=== PATIENT | female | born 1955 | race Caucasian/White ===

== ENCOUNTER → 2017-11-20 10:54 | Outpatient (CLI) | payer OTHER, SELFPAY | DX: Z12.31 Encounter for screening mammogram for malignant neoplasm of breast (principal) | CPT/HCPCS: 77063; 77067 ==

== ENCOUNTER 2021-08-01 17:02 | Observation (INO) | payer MEDICAID, SELFPAY ==
--- NOTE | 2021-07-24 16:26 | HP.PCM_ITS ---
History and Physical Date of Admission: 08/01/21 HPI: The patient is a 65 year old female presenting for pre-operative visit. She is scheduled for TVH, bilateral salpingectomy and oophorectomy, USLF, A&P repair and cystoscopy, for complete symptomatic uterovaginal prolapse on 08/01/21. Procedure discussed along with risks, benefits and complications. Other alternatives discussed for management. Consent form signed? Yes. ? ? PAST MEDICAL HISTORY PAST MEDICAL HISTORY Diagnosis Date ? Allergic rhinitis ? ? seasonal; Dr. Al had given nasal steroid and had helped ? Migraine headache without aura ? ? ? PAST SURGICAL HISTORY PAST SURGICAL HISTORY Procedure Laterality Date ? LIG/TRNSXJ FLP TUBE ABDL/VAG APPR UNI/BI ? 02/28/1995 ? PAST SURGICAL HISTORY OF ? 05/10/1987 ? diagnositc laparoscopy and tubal insufflation ? REM LESIO TRUNK,ARM,LEG 1.1 -2.0CM ? 02/01/14 ? Exc. right flank skin lesion (SK) ? UNSPECIFIED ORAL SURGERY PROCEDURE, BY REPORT ? ? ? tooth cut out. ? ? ? CURRENT MEDICATIONS Current Outpatient Medications Medication Sig Dispense Refill ? sumatriptan succinate (IMITREX ORAL) Take by mouth. ? ? ? estradiol (ESTRACE) 0.01 % (0.1 mg/gram) vaginal cream apply approx. 1/2 inch of cream to lower vagina qhs three times a week 42.5 g 0 ? meloxicam (MOBIC) 15 mg tablet Take 1 tablet by mouth once daily as n eeded. for pain. Take with food. 30 tablet 1 ? oxybutynin XL (DITROPAN XL) 5 mg 24 hr tablet Take 1 tablet by mouth twice daily. 180 tablet 3 ? pyridoxine HCl, vitamin B6, (VITAMIN B-6 ORAL) Take 1 tablet by mouth once daily. ? ? ? VITAMIN B COMPLEX-100 ORAL Take 1 tablet by mouth once daily. ? ? ? cholecalciferol, vitamin D3, (VITAMIN D3 ORAL) Take 5,000 Units by mouth once daily. ? ? ? Oxyquinoline-Na Lauryl Sulfate (TRIMO-CLAYTON JELLY) 0.025-0.01 % gel Use 1 application vaginally as directed. (Patient not taking: Reported on 12/19/2020 ) 1 Tube 2 ? triamcinolone acetonide (KENALOG) 0.1 % cream Apply 1 application to affected area three times daily. Apply sparingly to area for rash/itching. (Patient not taking: Reported on 05/23/2019 ) 30 g 0 ? loratadine-pseudoephedrine ER (ALAVERT ALLERGY-SINUS) 5-120 mg per tablet Take 1 tablet by mouth twice daily as needed. (has refills to September since last RX from September 2014) (Patient not taking: Reported on 11/15/2019 ) ? ? ? No current facility-administered medications for this visit. ? ? ALLERGIES: Adhesive Tape (Rosins), All Adhesive Of Any Kind [Other], Hayfever [Homeopathic Products], and Vicodin [Hydrocodone-Acetaminophen] ? PERSONAL HISTORY: SOCIAL HISTORY Social History ? Tobacco Use ? Smoking status: Never Smoker ? Smokeless tobacco: Never Used Vaping Use ? Vaping Use: Never used Substance Use Topics ? Alcohol use: No ? Drug use: No ? FAMILY HISTORY: FAMILY HISTORY FAMILY HISTORY Problem Relation Age of Onset ? Hypertension Mother ? ? Cervical Cancer Mother ? ? other (Lung cancer) Mother ? ? Cancer Father ? ? Hodgkins ? other (Parkinsons) Maternal Aunt ? ? Alzheimer's Disease Maternal Aunt ? ? Cancer Maternal Grandfather ? ? Brain; other cancers in body ? ? REVIEW OF SYMPTOMS: GENERAL: denies fevers or chills ENDOCRINOLOGY: has not been on steroids Cardiology : denies palpitations or chest pain Respiratory: denies SOB or cough Hematology: denies history of prolonged bleeding or easy bruising or VTE Allergy: Denies history of personal or family history of allergy to anesthesia ? PHYSICAL EXAMINATION: ? VITALS: Height 5' 1 (1.549 m), weight 131 lb (59.4 kg). ? GENERAL: The patient is well nourished, well hydrated in no acute distress. , The patient is oriented to time, place, and person. NECK: Supple. No lynphadenopathy, normal thyroid, no thyromegaly. LUNGS: Clear to auscultation bilaterally. no wheezes, rhonchi or rales HEART: Regular rate and rhythm, Normal heart sounds and No murmurs or gallops ? IMPRESSION: Complete uterovaginal prolapse, symptomatic ? PLAN: The risks/benefits/alternatives and personal involved for the planned TVH, BSO, USLF, A&P repair and cystoscopy were reviewed with the patient. Her questions were answered to her satisfaction and she desires to proceed. Consent was signed. I reviewed with her postop instructions and expectations. ? ? I have reviewed and updated past medical and surgical history, medications and allergies Assessment & Plan Assessment/Plan (1) Cystocele: (2) Rectocele: (3) Complete uterovaginal prolapse:
--- NOTE | 2021-07-31 15:32 | EKG12_ITS ---
Test Reason : PREOP Blood Pressure : / mmHG Vent. Rate : 047 BPM Atrial Rate : 047 BPM P-R Int : 152 ms QRS Dur : 086 ms QT Int : 428 ms P-R-T Axes : 047 -13 017 degrees QTc Int : 378 ms Sinus bradycardia Voltage criteria for left ventricular hypertrophy Abnormal ECG Confirmed by JJ DOAN, SIVAKUMAR ([id number]), editorial specialist JONI MOSHER ([id number]) on 08/01/2021 12:50:35 PM Referred By: LUMA Confirmed By:SIVAKUMAR GARDNER MD
[2021-07-31 16:33] LABS: Magnesium 2.4 mg/dL (1.6-2.6)
[2021-08-01] VITALS (12 sets, daily range): BP systolic 95–135; BP diastolic 58–79; PULSE 47–61; RESP 12–18; TEMP 36.3–36.9; O2SAT 92–100; BMI 24.2
--- NOTE | 2021-08-01 | IMM_PTH ---
PATIENT: LEVY DAILY LOC: MS3 U#:[id number] AGE/SX: 65/F ROOM: CO311 RE08/01/[address]: Dr. Stacia Wheatley MD : 1955 BED: 1 DIS: 08/03/2021 SPEC #: [id number] RECD: 08/05/21 13:51 STATUS: MACARIO REQ #: [id number] RADHA: 08/01/21 00:[address]: Stacia Wheatley DEPT: IMMUNOHISTOCHEMISTRY RECD BY: Ele Aj ENTERED: 08/05/21 13:54 SP TYPE: IMMUNO OTHR DR: Dr. Reshma Suarez MD [facility] Tissues: Uterus, NOS Procedures: p16 (initial) KI-67 (add) PHYSICIAN & INSTITUTION [place] [id number] SPECIMEN INFORMATION: Tissue Source: Uterus Clinical Info: Cystocele, rectocele, complete uterovaginal prolapse Specimen Number: [id number] #1 CPT code: 32857, 22158 METHODOLOGY: Deparaffinized sections of prefer/formalin-fixed tissue or PAP/DQ stained slides are incubated with monoclonal/polyclonal antibodies/oligonucleotide probes. Localization is made via biotin free immunoperoxidase method. Appropriate controls are performed and reacted as expected. Results on target cell population are indicated in the following table: RESULTS: ANTIBODY / CLONE RESULT Block 1 P16 (E6H4) positive Ki-67 (30-9) negative, rare, patchy These tests were developed and their performance characteristics determined by [facility]. They may not have been cleared or approved by the U.S. Food and Drug Administration. The FDA has determined that such clearance or approval is not necessary. The above immunohistochemical/dualISH markers are ordered and reviewed by the Pathologist. INTERPRETATION: Uterus, hysterectomy: Cervix with focal HPV change. AM:jayda 08/06/2021
[2021-08-01] MEDS: Lactated Ringers 1,000 ML 40 ML IV (08:38)
[2021-08-01] MEDS: Scopolamine 1mg/72hr Patch 1 PATCH TD (08:42)
[2021-08-01] MEDS: Gabapentin 600 MG Tablet PO (08:43)
[2021-08-01] MEDS: Phenazopyridine 95 MG Tablet 190 MG PO (08:43)
[2021-08-01] MEDS: Enoxaparin 40 MG/0.4 ML Syringe SC (08:46)
[2021-08-01] MEDS: Acetaminophen 500 MG Tablet 1000 MG PO ×3 (08:51→22:56)
[2021-08-01] MEDS: Celecoxib 200 MG Capsule PO (09:07)
--- NOTE | 2021-08-01 10:20 | HYST_PTH ---
PATIENT: LEVY DAILY LOC: MS3 U#:[id number] AGE/SX: 65/F ROOM: ND311 RE08/01/[address]: Dr. Stacia Wheatley MD : 1955 BED: 1 DIS: 08/03/2021 SPEC #: [id number] RECD: 08/01/21 14:12 STATUS: MACARIO RECandice #: [id number] RADHA: 08/01/21 10:[address]: Stacia Wheatley DEPT: SURGICAL PATHOLOGY RECD BY: Darinel Grey ENTERED: 08/02/21 07:54 SP TYPE: HYSTERECT OTHR DR: Dr. Reshma Suarez MD [facility] Tissues: Uterus, NOS Procedures: Surgery Specimen Level V HEADER OPERATION: ERAS, vaginal hysterectomy, bilateral salpingectomy PRE-OP DIAGNOSIS: Cystocele, rectocele, complete uterovaginal prolapse TISSUE SUBMITTED: Uterus, bilateral fallopian tubes, vaginal mucosa MICROSCOPIC DIAGNOSIS Uterus, hysterectomy: Cervix ? Focal HPV change suspected. Squamous metaplasia and chronic inflammation. See comment. Endometrium ? inactive endometrium with focal cystic change. Benign endometrial polyp with simple cystic hyperplasia. Myometrium ? no pathologic change. Right and left fallopian tubes ? benign paratubal cysts. Vaginal mucosa, anterior and posterior repair: Mild chronic inflammation. AM:jayda 08/05/2021 COMMENT Results from immunohistochemistry ([id number]) for surrogate HPV marker (p16) will be reported separately. MICROSCOPIC DESCRIPTION Slides are reviewed. GROSS DESCRIPTION Received in fixative is one container labeled with the patient's name and designated uterus, bilateral fallopian tubes and vaginal mucosa. The specimen consists of a hysterectomy specimen consisting of uterus with cervix, detached portion of bilateral fallopian tubes and vaginal mucosal tissue. The uterus with cervix weighs 33 gm and measures 7.5 x 4.5 x 2 cm. The serosal surface is cohen, glistening. The ectocervical mucosa is unremarkable. The external os is oval in contour. The endocervical canal measures 3 cm in length and the endocervical mucosa is cohen, glistening and unremarkable. The triangular endometrial cavity measures 3 cm in length and 2 cm in width. An endometrial polyp is noted in the posterior uterine wall measuring 1 x 0.7 x 0.2 cm. The rest of the endometrium is cohen, glistening and measures <0.1 cm in thickness. Portion of bilateral fallopian tubes measure 2 cm in length and 0.5 cm in diameter and 1.5 cm in length and 0.5 cm in diameter. The fimbrial ends are identified. Sections reveal unremarkable cut surfaces. Also present in the container are three variable sized pieces of cohen mucosal tissue measuring in aggregate 4 x 3 x 0.2 cm. Sections reveal unremarkable cut surfaces. A few instrumentation spicer are noted. Apprentice Technician sections are submitted in ten cassettes as follows: 1??anterior cervix, 2 - posterior cervix, 3 & 4 - anterior uterine wall, 5 & 6 - posterior uterine wall, 7??endometrial polyp with underlying uterine wall, 8 - one fallopian tube, 9 - second fallopian tube, 10??mucosal tissue. / HALEY:jayda 08/02/2021 TC:3 CPT: 71533
[2021-08-01 10:30] LABS: Bedside Glucose 90 mg/dL (74-106)
[2021-08-01] MEDS: Cefazolin 2 GM in 0.9% Normal Saline 100 ML IV (11:12)
[2021-08-01] MEDS: dexAMETHasone 10 MG/ML Vial 8 MG IV (11:25)
[2021-08-01] MEDS: Lactated Ringers @ 70 MLS/HR 70 ML IV ×2 (12:30→20:08)
[2021-08-01] MEDS: Lidocaine 1% /Epi 1:100 (20ml) 20 ML Vial (12:50)
--- NOTE | 2021-08-01 13:12 | PCM.OPRPT ---
Problems Associated Problem List Diagnoses (1) Rectocele: (2) Complete uterovaginal prolapse: Report of Operation Date of Procedure: 08/01/21 Pre-Operative Diagnosis: complete uterovaginal prolapse, rectocele, cystocele Post-Operative Diagnosis: same Surgery/Procedure Performed:: TVH, bilateral salpingectomy, USLF, Posterior repair and cystoscopy Description of Surgical Findings:: atrophic ovaries, normal tubes, normal small uterus, normal vagina. small cystocele, cervix prolapses to introitus, low rectocele to introitus Surgeon: Stacia Wheatley boat camp operator: Linda Tam boat camp operator: Bettie Type of Anesthesia: General Anesthesiologist: Brandy Harris Special Medications: none Specimen's removed: uterus, cervix, bilateral fallopian tubes and vaginal epithelium Drains: grider Estimated Blood Loss (mL): 100 Fluids Replaced: 1300 Description of Procedure: The patient was taken to the operating room where she was prepped and draped in the normal sterile fashion in the dorsal lithotomy position. A weighted speculum was placed in the vagina and the anterior lip of the cervix was grasped with a Hector clamp. The vaginal epithelium was infiltrated circumferentially around the cervix with 1% Xylocaine solution. An incision was made around the entire cervix with a scalpel and the vaginal epithelium was dissected back with blunt and sharp dissection. The anterior colpotomy incision was made sharply. Entry into the anterior cul-de-sac was confirmed by visualization of the uterine fundus and bowel behind the uterus. The posterior colpotomy was made with the Cheung scissors. The posterior peritoneum was secured to the posterior vaginal cuff with an [id number] 0 Vicryl suture. The Joel retractor was placed in the posterior colpotomy incision. The uterosacral ligaments were clamped with Darren clamps transected and suture ligated on both sides and excellent hemostasis of the pedicles was noted. The cardinal ligaments were clamped transected and suture ligated. The remainder of the cardinal ligament with the uterine arteries was clamped transected and suture ligated. The utero-ovarian ligaments and tubes were clamped transected and suture ligated. The uterus was brought out through the colpotomy incision intact. The ovaries were not removed because they are very atrophic and up against the pelvic sidewall and it was deemed there would be an increased risk of bleeding or ureteral injury to remove them. The left ovary and tube appeared normal. A Mary clamp was placed across the left tube and it was transected with the Metzenbaum scissors and suture ligated. The same procedure was performed on the contralateral side. The pedicles were all examined again and found to be hemostatic. The uterosacral ligament fixation was then performed. A 2-0 PDS was used to go through the anterior vaginal epithelium, through the uterosacral ligament and back out through the fat posterior vaginal epithelium. A Prolene suture was then placed under the anterior vaginal epithelium through the uterosacral ligament and through the posterior vaginal cuff but not all the way through the epithelium so that the suture could be buried. Another 2-0 PDS was then placed more midline through the anterior vaginal epithelium through and through, then through the uterosacral ligament then through the posterior vaginal cuff. Same procedures performed on the contralateral side. An 0 Vicryl suture was reefed across the posterior peritoneum and cinched down to help close off the posterior cul-de-sac. The cystoscopy was then performed and both ureteral jets were noted with and without tension on the uterosacral ligament fixation sutures. The cystoscopy was finished and the Grider catheter replaced. The uterosacral ligament fixation was sutures were tied down and a uwgtcj-[id number] 0 Vicryl suture was placed over the permanent sutures and another 0 Vicryl egsyfv-ds-rigka was needed in the midline to finish closing the vaginal epithelium. Good support was noted. There is only about 4 to 5 cm of vaginal epithelium between the urethra and the vaginal cuff along the anterior vaginal wall. Decision was made not to proceed with anterior repair as this would very much shorten and close off the vaginal caliber and patient did desire to be able to be sexually active in the future. Posterior repair was then performed in the usual fashion. Some 1% Xylocaine with dilute epinephrine was injected and the vaginal epithelium was dissected off the vaginal underlying vaginal tissue and the underlying vaginal tissue was imbricated. Excess vaginal epithelium was removed. Perineal body was filled up with 0 Vicryl sutures. The vaginal epithelium and the skin were then closed with 3-0 Vicryl suture in a running standard fashion. Hemostasis was noted. A finger was placed in the rectum to ensure that the rectum was patent and there were no sutures penetrating through the rectal epithelium. The vaginal cuff was hemostatic and excellent support was noted. The vagina was then packed with Xeroform gauze after vaginal sweep was performed by me. The Grider was left to straight drain. All sponge lap and needle counts were correct. Patient was awakened and taken to theher recovery room in stable condition. Grafts/Implants Used: none Procedure Start Time: 11:37 Procedure Stop Time: 13:11 Complications none Admit VTE Documentation VTE Present on Admission: No VTE Mechan Device Prophylaxis: SCD's VTE Pharm Prophylaxis ordered?: Yes
[2021-08-01] MEDS: Docusate Sodium 100 MG Capsule PO (22:56)
[2021-08-02] MEDS: oxyCODONE 5 MG Tablet PO (03:33)
[2021-08-02 05:20] LABS: Hematocrit 34.1 % (37-47); Hemoglobin 10.7 g/dL (12.0-15.0); Mean Corp Hgb Conc 31.4 g/dL (32-36); Mean Corpuscular Hgb 28.8 pg (27.0-32.0); Mean Corpuscular Volume 91.7 fL (81-99); Platelet Count 279 K/mm3 (150-450); RBC Distribution Width CV 12.9 % (11.6-14.6); RBC Distribution Width SD 43.2 fl (35.1-43.9); Red Blood Count 3.72 M/mm3 (4.2-5.4); White Blood Count 13.2 K/mm3 (4.4-11.0)
[2021-08-02] MEDS: Acetaminophen 500 MG Tablet 1000 MG PO ×3 (06:17→19:34)
--- NOTE | 2021-08-02 08:57 | PCM.PN.OB ---
Subjective Subjective Pt doing well. Pain is well controlled. Bustillo and vaginal packing still in place. No vaginal bleeding around packing. She denies chest pain, shortness of breath, leg pain. She has tolerated clears without nausea or vomiting. Has not ambulated since surgery. Objective Data Objective Data Vital Signs: Vital Signs Temp Pulse Resp BP Pulse Ox 98.1 F 60 16 113/60 97 08/01/21 23:00 08/01/21 23:00 08/01/21 23:00 08/01/21 23:00 08/01/21 23:00 Oxygen Flow Rate (L/min) 4 Oxygen Delivery Method Room Air Weight: 132 lb 9.6 oz Body Mass Index (BMI) 24.2 Intake & Output: Intake and Output for Last 24 Hours 07/31/21 08/01/21 08/02/21 23:59 23:59 23:59 Intake Total 1792.83 / 1792.83 Output Total 525 / 925 600 / 600 Balance 1267.83 / 867.83 -600 / -600 Lab / Micro Data Result Diagrams: 08/02/21 04:52 Labs: Laboratory Results - last 24 hr 08/01/21 08:22: POC Glucose 90 08/02/21 04:52: WBC 13.2 H, RBC 3.72 L, Hgb 10.7 L, Hct 34.1 L, MCV 91.7, MCH 28.8, MCHC 31.4 L, RDW Std Deviation 43.2, RDW Coeff of Carola 12.9, Plt Count 279, MPV 10.0 Physical Exam Const alert and no apparent distress General Appearance: comfortable HEENT normocephalic Resp normal respiratory effort GI soft to palpation, non-tender and non-distended Extremity no calf tenderness Assessment & Plan (1) S/P vaginal hysterectomy: PLAN: Patient is postop day 1 from a total vaginal hysterectomy, bilateral salpingectomy, sacrospinous ligament fixation, posterior repair. She is doing well. Vital signs and CBC from today reviewed. Vaginal packing removed at bedside during rounds. Discussed with nurse to remove Bustillo and perform PVR. Encourage ambulation today. Anticipate discharge later today. Discharge instructions reviewed with patient. To follow-up in the office in 1 to 2 weeks.
[2021-08-02 09:35] VITALS: BP 99/55; PULSE 73; RESP 16; TEMP 36.7; O2SAT 98
--- NOTE | 2021-08-02 12:32 | DCINST_ITS ---
Discharge Instructions Diet Discharge Diet: No restrictions Activity Discharge Activity: May Not Drive (until you feel like your abdomen is strong enough to slam on a car brake or turn a steering wheel sharply) and May Shower May resume sexual activity in: 6 weeks (No intercourse, tampons, bath, hot tubs, or pool for 6 weeks) Ice area for (Minutes): 15 Weight Bearing Status: Weight bearing as tolerated Lifting Restrictions: Nothing greater than 5-10 lbs Dressing / Incision Call your doctor if you observe: Fever of 101 or Higher, Coldness, Increased Pain, Numbness or Tingling, Change in Color, Inability to urinate, Inability to have a bowel movement, Using more than 1 pad per hour, Shortness of breath, Dizziness, Fainting spells, Swelling in the ankles, Chest pain, Increased palpitations (irregular heartbeat), Calf discomfort and Uncontrolled pain Follow Up Care Please Follow Up With: Stacia Wheatley MD When: Keep scheduled follow up Test Results: Test results from this visit will be discussed in further detail at your follow-up appointment, if applicable. Discharge Plan Admission Admit Date/Time: 08/01/21 17:02 Primary Reason for Your Visit: surgery Attending Provider: Stacia Wheatley Primary Care Provider: Reshma Suarez Consulting [facility] Instructions Patient Instructions: Hysterectomy Vaginal Dc Discharge Orders/Prescriptions Prescriptions: Continued sumatriptan succinate [Imitrex] 100 mg Tablet 100 mg PO Q2H PRN (Reason: migraines) RF: 0 Discontinued oxybutynin chloride 5 mg tablet extended release 24hr 5 mg PO DAILY RF: 0 Other Ambulatory Orders: 12 Lead EKG (Routine) Location: None Selected Ordered By: Dr. Chuck Mcmanus Referrals / Follow Up: Reshma Suarez MD [Primary Care Provider] - Disposition Disposition (needs filled in before D/C Order can be placed): Home, Self Care
[2021-08-02] MEDS: Docusate Sodium 100 MG Capsule PO (15:18)
[2021-08-02] MEDS: Ondansetron ODT 4 MG Tablet PO (15:22)
[2021-08-02 15:25] VITALS: BP 117/71; PULSE 52; RESP 16; TEMP 36.7; O2SAT 95
[2021-08-02 15:56] VITALS: O2SAT 97
[2021-08-02 20:16] VITALS: BP 114/61; PULSE 55; RESP 16; TEMP 37.1; O2SAT 93
[2021-08-03] MEDS: Docusate Sodium 100 MG Capsule PO ×2 (00:22→13:13)
[2021-08-03] MEDS: Acetaminophen 500 MG Tablet 1000 MG PO ×2 (00:22→05:19)
[2021-08-03 05:26] VITALS: BP 105/65; PULSE 50; RESP 16; TEMP 37.2; O2SAT 98
--- NOTE | 2021-08-03 07:41 | PCM.PN.OB ---
Subjective Subjective Pt is doing well. Ambulating and voiding without difficulty. She feels she is now completely emptying her bladder. Per nursing staff voided a large amount overnight and this morning. Nausea has improved. She just ordered breakfast. She feels ready to go home today if tolerates breakfast. Objective Data Objective Data Vital Signs: Vital Signs Temp Pulse Resp BP Pulse Ox 99 F 50 L 16 105/65 98 08/03/21 05:26 08/03/21 05:26 08/03/21 05:26 08/03/21 05:26 08/03/21 05:26 Oxygen Flow Rate (L/min) 4 Oxygen Delivery Method Room Air Weight: 132 lb 9.6 oz Body Mass Index (BMI) 24.2 Intake & Output: Intake and Output for Last 24 Hours 08/01/21 08/02/21 08/03/21 23:59 23:59 23:59 Intake Total 1792.83 / 1792.83 1300 / 1300 400 / 400 Output Total 525 / 925 1075 / 1075 1000 / 1000 Balance 1267.83 / 867.83 225 / 225 -600 / -600 Lab / Micro Data Result Diagrams: 08/02/21 04:52 Physical Exam Const alert General Appearance: comfortable HEENT normocephalic Resp normal respiratory effort GI soft to palpation and non-distended Extremity normal to inspection Assessment & Plan (1) S/P vaginal hysterectomy: PLAN: POD#2 s/p TVH, BS, posterior repair, sacrospinous ligament fixation, cystoscopy. Voiding without difficulty. Nausea has improved. Meeting milestones for discharge. Discharge home today if tolerates breakfast. She does not want anything for pain at this time. We will send her home with a stool softener.
[2021-08-03 08:19] VITALS: O2SAT 95
[2021-08-03 09:30] VITALS: BP 124/69; PULSE 53; RESP 18; TEMP 36.9; O2SAT 98
[2021-08-03] MEDS: Ondansetron ODT 4 MG Tablet PO (09:30)
[2021-08-03] MEDS: proMETHazine 25 MG Tablet 12.5 MG PO (11:41)
[2021-08-03 13:04] VITALS: BP 124/69; PULSE 54; RESP 18; TEMP 36.8; O2SAT 96
== END 2021-08-03 15:31 | disposition home or self-care (01) ==
LOC: MS3 08-02 10:36 → SDC 08-02 11:05 → MS3 08-02 11:05
PROVIDERS: Anesthesiology; Obstetrics & Gynecology; Admitting Provider Obstetrics & Gynecology; PCP Internal Medicine; Visit Provider Obstetrics & Gynecology
PROC: (CPT 58260; principal; 2021-08-01 10:00)
DX: N81.3 Complete uterovaginal prolapse (principal); G43.909 Migraine, unspecified, not intractable, without status migrainosus; Z79.899 Other long term (current) drug therapy; N85.01 Benign endometrial hyperplasia; M19.90 Unspecified osteoarthritis, unspecified site
CPT/HCPCS: 58262; 00944; 57260; 36415; 82962; 83735; 85027; 86850; 86900; 86901; 88307; 88341; 88342; 93005; 99218; 99251; J7120; G0378; G0463; J2405

== ENCOUNTER → 2023-10-01 | Outpatient (CLI) | payer MEDICARE, OTHER, SELFPAY ==
--- NOTE | 2023-10-01 17:17 | RAD_ITS ---
STUDY: X-RAY - LEFT FOOT CLINICAL: Female, 67 years old. Pain in left ankle and joints of left foot. TECHNIQUE: 3 views of the left foot. COMPARISON: None. FINDINGS: Intact talus, calcaneus, and tarsal bones. There is a small plantar calcaneal spur. Normal visualized subtalar, talonavicular, calcaneocuboid, tarsal and tarsometatarsal articulations. Normal metatarsi. There is severe degenerative arthrosis of the metatarsophalangeal joint of the hallux. Normal tibial and fibular sesamoid bones. Normal interphalangeal joint of the great toe. Normal phalanges of the great toe. Normal second through fifth metatarsophalangeal joints. Normal interphalangeal joints and phalanges of the lesser toes. The soft tissue structures are unremarkable. There is no demonstrated fracture. 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 Small plantar calcaneal spur. Electronically Signed: Reji Jama MD at 12:11 EDT ,
== END | disposition home or self-care (01) ==
PROVIDERS: PCP Nurse Practitioner Family; Visit Provider Nurse Practitioner Family
DX: Z13.21 Encounter for screening for nutritional disorder (principal); M25.572 Pain in left ankle and joints of left foot; M15.0 Primary generalized (osteo)arthritis; E55.9 Vitamin D deficiency, unspecified
CPT/HCPCS: 36415; 73630; 80048; 82306

== ENCOUNTER → 2023-10-01 | Outpatient (CLI) | payer MEDICARE, OTHER, SELFPAY ==
[2023-10-01 17:31] LABS: Vitamin D,25 Hydroxy 66.6 ng/mL
[2023-10-01 17:39] LABS: Anion Gap 8 (5-15); BUN 13 mg/dL (7-18); BUN/Creat Ratio 18.7 RATIO (10-20); Calcium,Total 8.9 mg/dL (8.5-10.1); Chloride 105 mmol/L (98-107); Creatinine, Serum 0.69 mg/dL (0.55-1.02); EST Glomerular Filtration Rate 90 mL/min (>60); Est Glom Filt Rate - Afr Amer 108 mL/min (>60); Glucose 83 mg/dL (74-106); Potassium 3.7 mmol/L (3.5-5.1); Sodium Level 138 mmol/L (136-145)
== END | disposition home or self-care (01) ==
LOC: VSLAB 13:57
PROVIDERS: PCP Nurse Practitioner Family; Visit Provider Nurse Practitioner Family
DX: E55.9 Vitamin D deficiency, unspecified (principal); M15.0 Primary generalized (osteo)arthritis
CPT/HCPCS: 36415; 80048; 82306

== ENCOUNTER → 2023-10-13 | Outpatient (CLI) | payer MEDICARE, OTHER, SELFPAY ==
--- NOTE | 2023-10-13 11:56 | BI_ITS ---
MAMMOGRAPHY - BILATERAL SCREENING REASON FOR EXAM: Female, 67 years old. Routine annual screening examination. PERTINENT HISTORY: Non-contributory. TECHNIQUE: Digital bilateral breast luma (3D mammographic acquisition) in the CC and MLO projections. 2-D mediolateral oblique (MLO) and craniocaudad (CC) views of both breasts were obtained. CAD: Full Field Digital Mammography with Computer Added Detection was performed. COMPARISON: Comparison is made with prior study of November 20, 2017. FINDINGS: Breast Composition: The breasts are heterogeneously dense, which may obscure small masses. There are no dominant masses or suspicious calcifications. Stable small benign-appearing bilateral axillary lymph nodes. No other significant abnormalities are identified. There has been no significant change since the prior study. BI/SCRN MAMM (CAD)W/LUMA BILAT IMPRESSION: Stable bilateral screening mammogram. Yearly follow-up mammogram recommended. (A) ASSESSMENT CATEGORY: BIRADS Category 2: Benign. A letter regarding these results will be sent to the patient by the facility within 30 days. Approximately 10% of breast cancers are not detected by mammography. A normal mammogram should not delay biopsy of a clinically suspicious abnormality. [id number] Electronically Signed: Brian Ortega MD at 13:15 EDT ,
== END | disposition home or self-care (01) ==
LOC: OPBI 11:54
PROVIDERS: PCP Nurse Practitioner Family; Referring Provider Nurse Practitioner Family; Visit Provider Nurse Practitioner Family
DX: Z12.31 Encounter for screening mammogram for malignant neoplasm of breast (principal)
CPT/HCPCS: 77063; 77067

== ENCOUNTER → 2023-10-21 | Outpatient (CLI) | payer MEDICARE, OTHER, SELFPAY ==
--- NOTE | 2023-10-21 13:51 | BD_ITS ---
STUDY: DUAL ENERGY X-RAY ABSORPTIOMETRY / DXA REASON FOR EXAM: Female, 68 years old. M810 TECHNIQUE: Bone Mineral Density (BMD) measurements of lumbar spine and bilateral hips were obtained. COMPARISON: None. FINDINGS: Lumbar Spine (L1-L4): g/cm2 (0.678) / T-score (-3.5) / Z-score (-1.5) Findings are suggestive of osteoporosis with a high fracture risk. Left Femur Total: g/cm2 (0.627) / T-score (-2.6) / Z-score (-1.2) Left Femoral Neck: g/cm2 (0.516) / T-score (-3.0) / Z-score (-1.4) Right Femur Total: g/cm2 (0.592) / T-score (-2.9) / Z-score (-1.5) Right Femoral Neck: g/cm2 (0.502) / T-score (-3.1) / Z-score (-1.5) BD/Dexa Bone Density Study IMPRESSION: The patient is considered osteoporotic as outlined below according to World Keith Organization (WHO) criteria with a high fracture risk. Reference Information: The T-score is the number of standard deviations above or below the standard which is normal for young adults at their peak bone mineral density. The World Health Organization (WHO) interprets the T-scores as follows: Above -1 Normal bone density Between -1 and -2.5 Osteopenia Equal to / or below -2.5 Osteoporosis As a practical clinical guideline, osteopenia may be graded as follows: Mild -1 through -1.5 Moderate -1.6 through -2.0 Severe -2.1 through -2.4 The Z-score is the number of standard deviations above or below age-matched controls. A Z-score of less than -1.5 would be considered abnormal. References: 1. NIH Osteoporosis and Related Bone Diseases www osteo.org 2. International Society for Clinical Densitometry www iscd.org 3. National Osteoporosis Foundation www nof.org Electronically Signed: Brian Ortega MD at 11:26 EDT ,
== END | disposition home or self-care (01) ==
LOC: OPBD 13:47
PROVIDERS: PCP Nurse Practitioner Family; Referring Provider Nurse Practitioner Family; Visit Provider Nurse Practitioner Family
DX: M81.0 Age-related osteoporosis without current pathological fracture (principal)
CPT/HCPCS: 77080

== ENCOUNTER → 2024-01-22 | Outpatient (CLI) | payer OTHER, MEDICARE, SELFPAY | END | disposition home or self-care (01) | PROVIDERS: PCP Nurse Practitioner Family | DX: M25.531 Pain in right wrist (principal); M25.541 Pain in joints of right hand | CPT/HCPCS: 73100; 73130 ==

== ENCOUNTER → 2024-05-04 | Outpatient (CLI) | payer OTHER, MEDICARE, SELFPAY ==
[2024-05-04 17:37] LABS: Absolute Lymphocyte Count 2.52 X10^3/uL (0.83-4.51); Absolute Neutrophil Count 3.6 X10^3/uL (2.0-7.7); Basophil# 0.05 X10^3/uL; Basophil% 0.7 % (0-1); Eosinophil# 0.19 X10^3/uL; Eosinophils% 2.6 % (0-5); Hematocrit 38.1 % (37-47); Hemoglobin 12.1 g/dL (12.0-15.0); Lymphocyte # 2.52 X10^3/ul (0.83-4.51); Lymphocyte % 35.1 % (19-41); Mean Corp Hgb Conc 31.8 g/dL (32-36); Mean Corpuscular Hgb 28.5 pg (27.0-32.0); Mean Corpuscular Volume 89.9 fL (81-99); Mean Platelet Vol. 9.8 fl (6.2-12.0); Monocyte% 11.1 % (0-10); NRBC Flagged by Analyzer 0 % (0-5); Neutrophil # 3.61 X10^3/uL (2.7-7.7); Neutrophil % 50.4 % (47-70); Platelet Count 318 K/mm3 (150-450); RBC Distribution Width CV 12.9 % (11.6-14.6); RBC Distribution Width SD 42.1 fl (35.1-43.9); Red Blood Count 4.24 M/mm3 (4.2-5.4); White Blood Count 7.2 K/mm3 (4.4-11.0)
[2024-05-04 17:51] LABS: Anion Gap 8 (5-15); BUN 14 mg/dL (7-18); BUN/Creat Ratio 19.9 RATIO (10-20); Calcium,Total 8.8 mg/dL (8.5-10.1); Chloride 104 mmol/L (98-107); EST Glomerular Filtration Rate 88 mL/min (>60); Est Glom Filt Rate - Afr Amer 106 mL/min (>60); Glucose 90 mg/dL (74-106); Potassium 4.1 mmol/L (3.5-5.1); Sodium Level 137 mmol/L (136-145)
[2024-05-05 14:28] LABS: Vitamin D,25 Hydroxy 68.9 ng/mL
== END | disposition home or self-care (01) ==
LOC: VSLAB 14:18
PROVIDERS: PCP Nurse Practitioner Family; Visit Provider Nurse Practitioner Family
DX: E55.9 Vitamin D deficiency, unspecified (principal); M15.0 Primary generalized (osteo)arthritis; G43.701 Chronic migraine without aura, not intractable, with status migrainosus
CPT/HCPCS: 36415; 80048; 82306; 84443; 85025

== ENCOUNTER → 2024-09-06 | Outpatient (CLI) | payer MEDICARE, SELFPAY ==
--- NOTE | 2024-09-06 12:09 | RAD_ITS ---
PROCEDURE: CHEST PA AND LATERAL 09/06/2024 REASON FOR EXAM: CHEST PAIN TECHNIQUE: CHEST PA AND LATERAL COMPARISON: 09/06/2024 FINDINGS: No focal consolidation. No pleural effusion or pneumothorax. Cardiac silhouette is within normal limits. No acute fractures. RAD/Chest PA and Lateral IMPRESSION: No focal consolidations. Reading Location: [id number]
[2024-09-06 16:46] LABS: Absolute Lymphocyte Count 2.39 X10^3/uL (0.83-4.51); Absolute Neutrophil Count 3.9 X10^3/uL (2.0-7.7); Basophil# 0.06 X10^3/uL; Basophil% 0.8 % (0-1); Eosinophil# 0.07 X10^3/uL; Hematocrit 37.6 % (37-47); Hemoglobin 12.1 g/dL (12.0-15.0); Lymphocyte # 2.39 X10^3/ul (0.83-4.51); Lymphocyte % 33.3 % (19-41); Mean Corp Hgb Conc 32.2 g/dL (32-36); Mean Corpuscular Hgb 29.4 pg (27.0-32.0); Mean Corpuscular Volume 91.3 fL (81-99); Mean Platelet Vol. 9.8 fl (6.2-12.0); Monocyte# 0.76 X10^3/uL; Monocyte% 10.6 % (0-10); NRBC Flagged by Analyzer 0 % (0-5); Neutrophil # 3.88 X10^3/uL (2.7-7.7); Neutrophil % 54.2 % (47-70); Platelet Count 320 K/mm3 (150-450); RBC Distribution Width CV 12.6 % (11.6-14.6); RBC Distribution Width SD 41.5 fl (35.1-43.9); Red Blood Count 4.12 M/mm3 (4.2-5.4); White Blood Count 7.2 K/mm3 (4.4-11.0)
[2024-09-06 17:16] LABS: ALB/GLOB Ratio 1.6 RATIO (0.9-2.4); AST(SGOT) 26 U/L (<=31); Alanine Aminotransfer ALT/SGPT 15 U/L (<=34); Alkaline Phosphatase 98 U/L (35-104); Anion Gap 10 (5-15); BUN 9 mg/dL (4-19); BUN/Creat Ratio 13.4 RATIO (10-20); Calcium,Total 9.4 mg/dL (7.6-11.0); Carbon Dioxide 23.8 mmol/L (21.0-32.0); Chloride 103 mmol/L (98-108); Creatinine, Serum 0.67 mg/dL (0.70-1.20); EST Glomerular Filtration Rate 96 (>60); Globulin 2.5 g/dL (2.2-4.2); Glucose 83 mg/dL (70-99); Protein, Total 6.5 g/dL (5.9-8.4); Sodium Level 137 mmol/L (133-145); Total Bilirubin 0.25 mg/dL (0.00-1.30)
== END | disposition home or self-care (01) ==
LOC: VSLAB 11:40 → RAD 12:04
PROVIDERS: PCP Nurse Practitioner Family
DX: R07.89 Other chest pain (principal)
CPT/HCPCS: 36415; 71046; 80053; 84443; 85025

== ENCOUNTER → 2024-09-08 | Outpatient (CLI) | payer MEDICARE, SELFPAY | END | disposition home or self-care (01) | LOC: PSN 10:45 | PROVIDERS: PCP Nurse Practitioner Family | DX: R07.89 Other chest pain (principal) | CPT/HCPCS: 93005 ==

== ENCOUNTER → 2024-10-18 | Outpatient (CLI) | payer MEDICARE, SELFPAY ==
[2024-10-18 13:13] LABS: Vitamin D,25 Hydroxy 48.3 ng/mL (30-100)
== END | disposition home or self-care (01) ==
LOC: VSLAB 10:50
PROVIDERS: PCP Nurse Practitioner Family
DX: E55.9 Vitamin D deficiency, unspecified (principal)
CPT/HCPCS: 36415; 82306

== ENCOUNTER → 2024-11-09 | Outpatient (CLI) | payer MEDICARE, SELFPAY ==
--- NOTE | 2024-11-09 14:14 | BI_ITS ---
EXAM: SCRN MAMM (CAD)W/LUMA BILAT DATE: 11/09/2024 CLINICAL HISTORY: F, Age 69 y/o , SCREENING No family history. TECHNIQUE: SCRN MAMM (CAD)W/LUMA BILAT COMPARISON: Prior exam(s) dated October 13, 2023.. FINDINGS: TISSUE DENSITY: The breasts are heterogeneously dense, which may obscure small masses. Bilateral Breast Mammographic Findings: No significant masses, calcifications or other abnormalities are identified. Stable small benign-appearing bilateral axillary lymph nodes. No suspicious masses, areas of developing architectural distortion, or suspicious calcifications. There has been no significant interval change. BI/SCRN MAMM (CAD)W/LUMA BILAT IMPRESSION: Stable examination. OVERALL FINAL ASSESSMENT BI-RADS 2: BENIGN RECOMMENDATION: Routine annual follow-up in 1 Year A letter with findings and recommendations will be mailed to the patient. Reading Location: [id number]
== END | disposition home or self-care (01) ==
LOC: OPBI 14:13
PROVIDERS: PCP Nurse Practitioner Family
DX: Z12.31 Encounter for screening mammogram for malignant neoplasm of breast (principal)
CPT/HCPCS: 77063; 77067